=== PATIENT | male | born 1970 | race African-American/Black ===

== ENCOUNTER 2022-02-28 13:50 | Inpatient (IN) | payer MEDICAID ==
[~2022-02-28] VITALS: Ht 157.5 cm; Wt 82.6 kg
[2022-02-28] MEDS ORDERED: CLON1PAT12 TD (14:59)
[2022-02-28] MEDS ORDERED: HYDR25TA2 PO (14:59)
[2022-02-28] MEDS ORDERED: DOXY-354 PO (14:59)
[2022-02-28] MEDS ORDERED: CYCL-448 PO (14:59)
[2022-02-28] MEDS ORDERED: ATOR40TA28 PO (14:59)
[2022-02-28] MEDS ORDERED: FLUO20CA36 PO (14:59)
[2022-02-28] MEDS ORDERED: NIFE10CA50 PO (14:59)
[2022-02-28] MEDS ORDERED: AMLO-258 PO (14:59)
[2022-02-28] MEDS ORDERED: METF-1211 PO (14:59)
[2022-02-28 15:13] LABS: BASOPHILS % (AUTO) 0.7 % (0.0-2.0); EOSINOPHILS % (AUTO) 1.1 % (1.0-6.0); HEMATOCRIT 42.2 % (41-53); HEMOGLOBIN 13.7 g/dL (13.5-17.5); LYMPHOCYTES # (AUTO) 2.1 K/uL (1.0-4.8); LYMPHOCYTES % (AUTO) 20.1 % (22.0-44.0); MEAN CORPUSCULAR HEMOGLOBIN 25.2 pg (26.0-34.0); MEAN CORPUSCULAR HGB CONC 32.5 G/dL (31.0-37.0); MEAN CORPUSCULAR VOLUME 78 fL (80-100); MONOCYTES # (AUTO) 0.7 K/uL (0.1-1.0); NEUTROPHILS # (AUTO) 7.5 K/uL (1.8-7.7); NEUTROPHILS % (AUTO) 71.1 % (40.0-70.0); PLATELET COUNT (AUTO) 290 K/uL (150-450); RED BLOOD CELL COUNT(AUTO) 5.43 MIL/uL (4.50-5.90); RED CELL DISTRIBUTION WIDTH 14.9 % (11.5-14.5)
[2022-02-28 15:38] LABS: ALANINE AMINOTRANSFERASE 25 U/L (12-78); ALBUMIN 3.9 g/dL (3.4-5.0); ALKALINE PHOSPHATASE 89 U/L (46-116); ANION GAP 6 mmol/L (8-16); ASPARTATE AMINOTRANSFERASE 21 U/L (15-37); BILIRUBIN,TOTAL 0.3 mg/dL (0.1-1.0); CALCIUM, TOTAL 9.6 mg/dL (8.8-10.5); CARBON DIOXIDE 29 mmol/L (22-29); CHLORIDE 97 mmol/L (98-107); CREATININE 1.28 mg/dL (0.60-1.30); GLUCOSE,RANDOM 129 mg/dL (70-110); SODIUM SERUM 132 mmol/L (136-145); TOTAL PROTEIN, SERUM 8.8 g/dL (6.4-8.2); UREA NITROGEN, BLOOD 18 mg/dL (7-18)
[2022-02-28 15:43] LABS: GLOMERULAR FILTR. RATE CALC > 60 mL/min (>60); POTASSIUM 2.9 mmol/L (3.5-5.1)
[2022-02-28] MEDS ORDERED: NIFEdipine 10 MG CAPSULE PO ONE (16:00)
[2022-02-28] MEDS ORDERED: POTASSIUM CHLORIDE 20 MEQ ER TABLET PO ONE (16:15)
[2022-02-28] MEDS ORDERED: ZOLPIDEM TARTRATE 10 MG TABLET PO PRN (16:45)
[2022-02-28] MEDS ORDERED: LORazepam 2 MG TABLET PO PRN (16:45)
[2022-02-28] MEDS ORDERED: QUEtiapine FUMARATE 100 MG TABLET PO PRN (16:45)
[2022-02-28 17:24] LABS: APPEARANCE,URINE CLEAR (CLEAR); BILIRUBIN,URINE NEGATIVE (NEGATIVE); GLUCOSE, URINE (UA) NEGATIVE (NEGATIVE); KETONES,URINE NEGATIVE (NEGATIVE); LEUKOCYTE ESTERASE ,URINE NEGATIVE (NEGATIVE); NITRATE,URINE NEGATIVE (NEGATIVE); OCCULT BLOOD,URINE TRACE (NEGATIVE); PH,URINE 6.5 (5.0-8.0); PROTEIN,URINE NEGATIVE (NEGATIVE); SPECIFIC GRAVITIY, URINE 1.015 (1.003-1.030); UROBILINOGEN,URINE <=1.0 mg/dL (<=1.0)
[2022-02-28 17:31] LABS: AMPHET/METH SCREEN,URINE NEGATIVE (NEGATIVE); BARBITURATE SCREEN, URINE NEGATIVE (NEGATIVE); BENZODIAZEPINES SCREEN,URINE NEGATIVE (NEGATIVE); CANNABINOID SCREEN,URINE NEGATIVE (NEGATIVE); COCAINE SCREEN,URINE NEGATIVE (NEGATIVE); METHADONE SCREEN, URINE NEGATIVE (NEGATIVE); OPIATE SCREEN,URINE NEGATIVE (NEGATIVE)
[2022-02-28 17:36] LABS: PHENCYCLIDINE SCREEN,URINE NEGATIVE (NEGATIVE)
[2022-02-28 17:57] LABS: COVID AG,FIA SOURCE NASAL SWAB
[2022-02-28 18:01] LABS: BACTERIA,URINE None Seen /HPF (None Seen); SQUAMOUS EPITHELIAL CELL,UR Few /LPF (None Seen); WBC,URINE 0-2 /HPF (0-5)
[2022-02-28] MEDS ORDERED: ONDANSETRON HCL 4 MG/2 ML VIAL IVP PRN (19:30)
[2022-02-28] MEDS ORDERED: INSULIN LISPRO 100 UNITS/ML SQ PRN (19:30)
[2022-02-28] MEDS ORDERED: ACETAMINOPHEN 325 MG TABLET PO PRN (19:30)
[2022-02-28] MEDS ORDERED: DEXTROSE 50%-WATER 25 GM/50 ML SYRINGE IVP PRN (19:30)
[2022-03-01 05:18] LABS: BASOPHILS % (AUTO) 0.6 % (0.0-2.0); EOSINOPHILS % (AUTO) 1.7 % (1.0-6.0); HEMOGLOBIN 13.1 g/dL (13.5-17.5); LYMPHOCYTES # (AUTO) 1.9 K/uL (1.0-4.8); LYMPHOCYTES % (AUTO) 24.2 % (22.0-44.0); MEAN CORPUSCULAR HEMOGLOBIN 25.3 pg (26.0-34.0); MEAN CORPUSCULAR HGB CONC 32.8 G/dL (31.0-37.0); MEAN CORPUSCULAR VOLUME 77 fL (80-100); MONOCYTES # (AUTO) 0.7 K/uL (0.1-1.0); MONOCYTES % (AUTO) 9.3 % (2.0-9.0); NEUTROPHILS # (AUTO) 5.1 K/uL (1.8-7.7); NEUTROPHILS % (AUTO) 64.2 % (40.0-70.0); PLATELET COUNT (AUTO) 261 K/uL (150-450); RED BLOOD CELL COUNT(AUTO) 5.17 MIL/uL (4.50-5.90); RED CELL DISTRIBUTION WIDTH 15.6 % (11.5-14.5)
[2022-03-01 05:26] LABS: ANION GAP 5 mmol/L (8-16); CALCIUM, TOTAL 9.2 mg/dL (8.8-10.5); CARBON DIOXIDE 32 mmol/L (22-29); CHLORIDE 99 mmol/L (98-107); CREATININE 1.31 mg/dL (0.60-1.30); GLUCOSE,RANDOM 111 mg/dL (70-110); POTASSIUM 3.7 mmol/L (3.5-5.1); SODIUM SERUM 136 mmol/L (136-145); UREA NITROGEN, BLOOD 18 mg/dL (7-18)
[2022-03-01 05:32] LABS: GLOMERULAR FILTR. RATE CALC > 60 mL/min (>60)
[2022-03-01 10:16] LABS: GLUCOMETER DEV NAME(LOC) PVLAB.35; GLUCOSE,POINT OF CARE 205 MG/DL (70-110)
[2022-03-01] MEDS ORDERED: HALOPERIDOL 5 MG TABLET PO PRN (10:30)
[2022-03-01] MEDS ORDERED: LORazepam 2 MG TABLET PO PRN (10:30)
[2022-03-01 12:40] VITALS: BP 140/103
[2022-03-01 13:26] LABS: GLUCOMETER DEV NAME(LOC) BV2S.; GLUCOSE,POINT OF CARE 139 MG/DL (70-110)
[2022-03-01] MEDS: HYDROCHLOROTHIAZIDE 25 MG TABLET PO SCH (14:27)
[2022-03-01] MEDS: ATORVASTATIN CALCIUM 40 MG TABLET PO SCH (14:27)
[2022-03-01] MEDS ORDERED: ALBUTEROL SULFATE HFA 90 MCG/PUFF 8 GM INHALER IH PRN (14:30)
[2022-03-01] MEDS ORDERED: CloNIDine HCL 0.1 MG TABLET PO PRN (14:30)
[2022-03-01] MEDS ORDERED: NICOTINE 14 MG/24 HOUR PATCH TD PRN (14:30)
[2022-03-01] MEDS ORDERED: IBUPROFEN 400 MG TABLET PO PRN (14:30)
[2022-03-01] MEDS ORDERED: DOCUSATE SODIUM 100 MG CAPSULE PO PRN (14:30)
[2022-03-01] MEDS ORDERED: ONDANSETRON HCL 4 MG TABLET PO PRN (14:30)
[2022-03-01] MEDS ORDERED: GuaiFENesin/D-METHORPHAN [SUGAR-FREE] 200-20MG/10 ML SYRUP UDCUP PO PRN (14:30)
[2022-03-01] MEDS ORDERED: ACETAMINOPHEN 325 MG TABLET PO PRN (14:30)
[2022-03-01] MEDS ORDERED: MAGNESIUM HYDROXIDE SUSPENSION 30 ML UDCUP PO PRN (14:30)
[2022-03-01] MEDS ORDERED: MAGNESIUM OXIDE 400 MG TABLET PO ONE (14:30)
[2022-03-01] MEDS ORDERED: LOPERAMIDE HCL 2 MG CAPSULE PO PRN (14:30)
[2022-03-01] MEDS ORDERED: MAG HYDROX/AL HYDROX/SIMETH ES 30 ML SUSPENSION UDCUP PO PRN (14:30)
[2022-03-01] MEDS ORDERED: PETROLATUM,WHITE 28 GM JELLY TP PRN (14:30)
[2022-03-01] MEDS: MetFORMIN HCL 500 MG TABLET PO SCH (16:38)
[2022-03-01 16:51] LABS: GLUCOMETER DEV NAME(LOC) BV2S.; GLUCOSE,POINT OF CARE 106 MG/DL (70-110)
[2022-03-01] MEDS ORDERED: CloNIDine HCL 0.1 MG TABLET PO SCH (17:00)
[2022-03-01] MEDS: CYCLOBENZAPRINE HCL 10 MG TABLET PO PRN (18:36)
[2022-03-01 20:22] VITALS: BP 125/90
[2022-03-01] MEDS: ZOLPIDEM TARTRATE 10 MG TABLET PO PRN (20:24)
[2022-03-01] MEDS ORDERED: GLUCAGON,HUMAN RECOMBINANT 1 MG VIAL IM PRN (21:00)
[2022-03-01 21:22] LABS: GLUCOMETER DEV NAME(LOC) BV2S.; GLUCOSE,POINT OF CARE 141 MG/DL (70-110)
[2022-03-02 06:21] LABS: GLUCOMETER DEV NAME(LOC) BV2S.; GLUCOSE,POINT OF CARE 105 MG/DL (70-110)
[2022-03-02] MEDS: MetFORMIN HCL 500 MG TABLET PO SCH ×2 (06:48→16:59)
[2022-03-02 07:09] LABS: ANION GAP 5 mmol/L (8-16); CALCIUM, TOTAL 8.9 mg/dL (8.8-10.5); CARBON DIOXIDE 29 mmol/L (22-29); CHLORIDE 99 mmol/L (98-107); CREATININE 1.22 mg/dL (0.60-1.30); GLUCOSE,RANDOM 100 mg/dL (70-110); POTASSIUM 3.5 mmol/L (3.5-5.1); SODIUM SERUM 133 mmol/L (136-145); UREA NITROGEN, BLOOD 17 mg/dL (7-18)
[2022-03-02 07:12] LABS: GLOMERULAR FILTR. RATE CALC > 60 mL/min (>60)
[2022-03-02 08:06] VITALS: BP 145/73
[2022-03-02] MEDS: HYDROCHLOROTHIAZIDE 25 MG TABLET PO SCH (08:42)
[2022-03-02] MEDS: AmLODIPine BESYLATE 5 MG TABLET PO SCH (08:42)
[2022-03-02] MEDS: ATORVASTATIN CALCIUM 40 MG TABLET PO SCH (08:42)
[2022-03-02] MEDS: CYCLOBENZAPRINE HCL 10 MG TABLET PO PRN ×2 (08:55→21:02)
[2022-03-02] MEDS ORDERED: CloNIDine 0.1 MG/24 HOUR PATCH TD SCH (09:00)
[2022-03-02 11:36] LABS: GLUCOMETER DEV NAME(LOC) BV2S.; GLUCOSE,POINT OF CARE 90 MG/DL (70-110)
[2022-03-02] MEDS: FLUoxetine HCL 10 MG CAPSULE PO SCH (15:35)
[2022-03-02 16:52] LABS: GLUCOMETER DEV NAME(LOC) BV2S.; GLUCOSE,POINT OF CARE 123 MG/DL (70-110)
[2022-03-02 20:20] VITALS: BP 128/95
[2022-03-02] MEDS: OLANZapine 10 MG TABLET PO SCH (20:48)
[2022-03-02 21:51] LABS: GLUCOMETER DEV NAME(LOC) BV2S.; GLUCOSE,POINT OF CARE 162 MG/DL (70-110)
[2022-03-02] MEDS: INSULIN LISPRO 100 UNITS/ML SQ PRN (22:16)
[2022-03-03] MEDS: MetFORMIN HCL 500 MG TABLET PO SCH ×2 (06:54→16:42)
[2022-03-03 08:13] VITALS: BP 135/93
[2022-03-03 08:56] LABS: GLUCOMETER DEV NAME(LOC) BV2S.; GLUCOSE,POINT OF CARE 91 MG/DL (70-110)
[2022-03-03] MEDS: FLUoxetine HCL 10 MG CAPSULE PO SCH (09:08)
[2022-03-03] MEDS: ATORVASTATIN CALCIUM 40 MG TABLET PO SCH (09:08)
[2022-03-03] MEDS: AmLODIPine BESYLATE 5 MG TABLET PO SCH (09:08)
[2022-03-03] MEDS: HYDROCHLOROTHIAZIDE 25 MG TABLET PO SCH (09:08)
[2022-03-03 11:17] LABS: GLUCOMETER DEV NAME(LOC) BV2S.; GLUCOSE,POINT OF CARE 165 MG/DL (70-110)
[2022-03-03] MEDS: INSULIN LISPRO 100 UNITS/ML SQ PRN (11:29)
[2022-03-03 16:40] LABS: GLUCOMETER DEV NAME(LOC) BV2S.; GLUCOSE,POINT OF CARE 111 MG/DL (70-110)
[2022-03-03 20:05] VITALS: BP 139/90
[2022-03-03] MEDS: ZOLPIDEM TARTRATE 10 MG TABLET PO PRN (20:24)
[2022-03-03] MEDS: OLANZapine 10 MG TABLET PO SCH (20:24)
[2022-03-03] MEDS: CYCLOBENZAPRINE HCL 10 MG TABLET PO PRN (20:37)
[2022-03-03 20:46] LABS: GLUCOMETER DEV NAME(LOC) BV2S.; GLUCOSE,POINT OF CARE 131 MG/DL (70-110)
[2022-03-04 06:21] LABS: GLUCOMETER DEV NAME(LOC) BV2S.; GLUCOSE,POINT OF CARE 93 MG/DL (70-110)
[2022-03-04] MEDS: MetFORMIN HCL 500 MG TABLET PO SCH ×2 (06:38→16:40)
[2022-03-04 08:17] VITALS: BP 140/90
[2022-03-04] MEDS: ATORVASTATIN CALCIUM 40 MG TABLET PO SCH (08:39)
[2022-03-04] MEDS: FLUoxetine HCL 10 MG CAPSULE PO SCH (08:39)
[2022-03-04] MEDS: HYDROCHLOROTHIAZIDE 25 MG TABLET PO SCH (08:39)
[2022-03-04] MEDS: AmLODIPine BESYLATE 5 MG TABLET PO SCH (08:39)
[2022-03-04 11:21] LABS: GLUCOMETER DEV NAME(LOC) BV2S.; GLUCOSE,POINT OF CARE 160 MG/DL (70-110)
[2022-03-04] MEDS: INSULIN LISPRO 100 UNITS/ML SQ PRN (11:27)
[2022-03-04 16:21] LABS: GLUCOMETER DEV NAME(LOC) BV2S.; GLUCOSE,POINT OF CARE 102 MG/DL (70-110)
[2022-03-04 20:25] VITALS: BP 128/83
[2022-03-04] MEDS: OLANZapine 10 MG TABLET PO SCH (20:27)
[2022-03-04] MEDS: CYCLOBENZAPRINE HCL 10 MG TABLET PO PRN (20:27)
[2022-03-04 21:31] LABS: GLUCOMETER DEV NAME(LOC) BV2S.; GLUCOSE,POINT OF CARE 126 MG/DL (70-110)
[2022-03-05] MEDS: ZOLPIDEM TARTRATE 10 MG TABLET PO PRN ×2 (00:08→21:03)
[2022-03-05 00:09] VITALS: BP 138/93
[2022-03-05 06:41] LABS: GLUCOMETER DEV NAME(LOC) BV2S.; GLUCOSE,POINT OF CARE 78 MG/DL (70-110)
[2022-03-05] MEDS: MetFORMIN HCL 500 MG TABLET PO SCH ×2 (06:58→16:32)
[2022-03-05 08:32] VITALS: BP 128/77
[2022-03-05] MEDS: AmLODIPine BESYLATE 5 MG TABLET PO SCH (09:13)
[2022-03-05] MEDS: HYDROCHLOROTHIAZIDE 25 MG TABLET PO SCH (09:13)
[2022-03-05] MEDS: FLUoxetine HCL 10 MG CAPSULE PO SCH (09:13)
[2022-03-05] MEDS: ATORVASTATIN CALCIUM 40 MG TABLET PO SCH (09:13)
[2022-03-05] MEDS: INSULIN LISPRO 100 UNITS/ML SQ PRN ×2 (11:27→16:42)
[2022-03-05 11:57] LABS: GLUCOMETER DEV NAME(LOC) BV2S.; GLUCOSE,POINT OF CARE 169 MG/DL (70-110)
[2022-03-05] MEDS: CYCLOBENZAPRINE HCL 10 MG TABLET PO PRN (13:05)
[2022-03-05 15:01] LABS: GLUCOMETER DEV NAME(LOC) POC.BV
[2022-03-05 16:30] LABS: GLUCOMETER DEV NAME(LOC) BV2S.; GLUCOSE,POINT OF CARE 168 MG/DL (70-110)
[2022-03-05 20:12] VITALS: BP 119/83
[2022-03-05 20:25] LABS: GLUCOMETER DEV NAME(LOC) BV2S.; GLUCOSE,POINT OF CARE 124 MG/DL (70-110)
[2022-03-05] MEDS: OLANZapine 10 MG TABLET PO SCH (20:30)
[2022-03-06] MEDS ORDERED: ATOR40TA71 PO (04:58)
[2022-03-06] MEDS ORDERED: METF-1211 PO (04:58)
[2022-03-06] MEDS ORDERED: PROZ10 PO (04:58)
[2022-03-06] MEDS ORDERED: HYDR25TA PO (04:58)
[2022-03-06] MEDS ORDERED: [UNRECOGNIZED DRUG - CODE] TD (04:58)
[2022-03-06] MEDS ORDERED: OLAN10 PO (04:58)
[2022-03-06] MEDS ORDERED: AMLO-257 PO (04:58)
[2022-03-06] MEDS: MetFORMIN HCL 500 MG TABLET PO SCH (06:38)
[2022-03-06 06:41] LABS: GLUCOMETER DEV NAME(LOC) BV2S.; GLUCOSE,POINT OF CARE 105 MG/DL (70-110)
[2022-03-06 09:00] VITALS: BP 141/91
[2022-03-06] MEDS: HYDROCHLOROTHIAZIDE 25 MG TABLET PO SCH (09:39)
[2022-03-06] MEDS: AmLODIPine BESYLATE 5 MG TABLET PO SCH (09:39)
[2022-03-06] MEDS: ATORVASTATIN CALCIUM 40 MG TABLET PO SCH (09:39)
[2022-03-06] MEDS: FLUoxetine HCL 10 MG CAPSULE PO SCH (09:39)
[2022-03-06 15:21] LABS: GLUCOMETER DEV NAME(LOC) BV2S.; GLUCOSE,POINT OF CARE 107 MG/DL (70-110)
[2022-03-06 16:51] LABS: GLUCOMETER DEV NAME(LOC) POC.BV
== END 2022-03-06 12:00 | disposition home or self-care (01) | DRG 750 ==
LOC: EMS 13:52 → B2S 03-01 10:42
PROVIDERS: ADMIT Psychiatry & Neurology Psychiatry; ATTEND Psychiatry & Neurology Psychiatry
DX: F25.1 Schizoaffective disorder, depressive type (principal); R45.851 Suicidal ideations; E11.9 Type 2 diabetes mellitus without complications; E78.00 Pure hypercholesterolemia, unspecified; D64.9 Anemia, unspecified; E66.9 Obesity, unspecified; I10 Essential (primary) hypertension; I25.10 Atherosclerotic heart disease of native coronary artery without angina pectoris; Z20.822 Contact with and (suspected) exposure to COVID-19; Z79.899 Other long term (current) drug therapy; Z88.8 Allergy status to other drugs, medicaments and biological substances; Z91.51 Personal history of suicidal behavior; Z68.33 Body mass index [BMI] 33.0-33.9, adult
CPT/HCPCS: 80048; 80053; 81001; 81003; 82962; 83735; 85025; 85379; 99285; G0480

== ENCOUNTER 2022-03-07 19:53 | Inpatient (IN) | payer MEDICAID ==
[~2022-03-07] VITALS: Ht 157.5 cm; Wt 90.3 kg
[~2022-03-07 19:53] MED LIST: AMLO-257 PO; ATOR40TA71 PO; HYDR25TA PO; METF-1211 PO; OLAN10 PO; PROZ10 PO; [UNRECOGNIZED DRUG - CODE] TD
[2022-03-07 20:32] LABS: BASOPHILS % (AUTO) 0.7 % (0.0-2.0); EOSINOPHILS % (AUTO) 2.3 % (1.0-6.0); HEMATOCRIT 42.4 % (41-53); HEMOGLOBIN 14.1 g/dL (13.5-17.5); LYMPHOCYTES % (AUTO) 30.3 % (22.0-44.0); MEAN CORPUSCULAR HEMOGLOBIN 26.2 pg (26.0-34.0); MEAN CORPUSCULAR HGB CONC 33.4 G/dL (31.0-37.0); MEAN CORPUSCULAR VOLUME 78 fL (80-100); MONOCYTES # (AUTO) 0.9 K/uL (0.1-1.0); MONOCYTES % (AUTO) 9.5 % (2.0-9.0); NEUTROPHILS # (AUTO) 5.6 K/uL (1.8-7.7); NEUTROPHILS % (AUTO) 57.2 % (40.0-70.0); PLATELET COUNT (AUTO) 259 K/uL (150-450); RED CELL DISTRIBUTION WIDTH 15.5 % (11.5-14.5)
[2022-03-07 21:00] LABS: COVID AG,FIA SOURCE NASOPHARYNGEAL
[2022-03-07 21:01] LABS: ANION GAP 9 mmol/L (8-16); CALCIUM, TOTAL 9.6 mg/dL (8.8-10.5); CARBON DIOXIDE 31 mmol/L (22-29); CHLORIDE 102 mmol/L (98-107); CREATININE 1.67 mg/dL (0.60-1.30); GLUCOSE,RANDOM 99 mg/dL (70-110); POTASSIUM 3.7 mmol/L (3.5-5.1); SODIUM SERUM 142 mmol/L (136-145); UREA NITROGEN, BLOOD 19 mg/dL (7-18)
[2022-03-07 21:08] LABS: GLOMERULAR FILTR. RATE CALC 53 mL/min (>60)
[2022-03-07 21:11] LABS: ALANINE AMINOTRANSFERASE 34 U/L (12-78); ALKALINE PHOSPHATASE 133 U/L (46-116); ASPARTATE AMINOTRANSFERASE 19 U/L (15-37); BILIRUBIN,TOTAL 0.3 mg/dL (0.1-1.0)
[2022-03-07] MEDS ORDERED: HALOPERIDOL 5 MG TABLET PO PRN (21:30)
[2022-03-08 01:30] VITALS: BP 136/96
[2022-03-08] MEDS ORDERED: PNEUMOCOCCAL VACCINE POLYVALENT 0.5 ML VIAL [PPSV23] IM. ONE (05:30)
[2022-03-08] MEDS ORDERED: INFLUENZA VIRUS VACCINE QVS 2022-23 (6MO+)/PF 60 MCG/0.5 ML SYRINGE IM. ONE (05:30)
[2022-03-08] MEDS ORDERED: GLUCAGON,HUMAN RECOMBINANT 1 MG VIAL IM PRN (06:15)
[2022-03-08] MEDS: MetFORMIN HCL 500 MG TABLET PO SCH ×2 (06:40→16:29)
[2022-03-08 06:46] LABS: GLUCOMETER DEV NAME(LOC) BV3N.; GLUCOSE,POINT OF CARE 101 MG/DL (70-110)
[2022-03-08] MEDS ORDERED: MAG HYDROX/AL HYDROX/SIMETH ES 30 ML SUSPENSION UDCUP PO PRN (07:00)
[2022-03-08] MEDS ORDERED: PETROLATUM,WHITE 28 GM JELLY TP PRN (07:00)
[2022-03-08] MEDS ORDERED: CloNIDine HCL 0.1 MG TABLET PO PRN (07:00)
[2022-03-08] MEDS ORDERED: GuaiFENesin/D-METHORPHAN [SUGAR-FREE] 200-20MG/10 ML SYRUP UDCUP PO PRN (07:00)
[2022-03-08] MEDS ORDERED: ACETAMINOPHEN 325 MG TABLET PO PRN (07:00)
[2022-03-08] MEDS ORDERED: NICOTINE 14 MG/24 HOUR PATCH TD PRN (07:00)
[2022-03-08] MEDS ORDERED: IBUPROFEN 400 MG TABLET PO PRN (07:00)
[2022-03-08] MEDS ORDERED: MAGNESIUM HYDROXIDE SUSPENSION 30 ML UDCUP PO PRN (07:00)
[2022-03-08] MEDS ORDERED: ONDANSETRON HCL 4 MG TABLET PO PRN (07:00)
[2022-03-08] MEDS ORDERED: DOCUSATE SODIUM 100 MG CAPSULE PO PRN (07:00)
[2022-03-08] MEDS ORDERED: LOPERAMIDE HCL 2 MG CAPSULE PO PRN (07:00)
[2022-03-08] MEDS ORDERED: ALBUTEROL SULFATE HFA 90 MCG/PUFF 8 GM INHALER IH PRN (07:00)
[2022-03-08] MEDS: AmLODIPine BESYLATE 5 MG TABLET PO SCH (09:01)
[2022-03-08] MEDS: ATORVASTATIN CALCIUM 40 MG TABLET PO SCH (09:01)
[2022-03-08 09:36] VITALS: BP 125/69
[2022-03-08 12:02] LABS: GLUCOMETER DEV NAME(LOC) BV3N.; GLUCOSE,POINT OF CARE 124 MG/DL (70-110)
[2022-03-08] MEDS: OLANZapine 10 MG TABLET PO SCH (12:49)
[2022-03-08] MEDS: FLUoxetine HCL 20 MG CAPSULE PO SCH (12:49)
[2022-03-08] MEDS: LORazepam 2 MG TABLET PO PRN (13:42)
[2022-03-08 16:41] LABS: GLUCOMETER DEV NAME(LOC) BV3N.; GLUCOSE,POINT OF CARE 137 MG/DL (70-110)
[2022-03-08] MEDS: ZOLPIDEM TARTRATE 10 MG TABLET PO PRN (20:17)
[2022-03-08 20:26] LABS: GLUCOMETER DEV NAME(LOC) BV3N.; GLUCOSE,POINT OF CARE 143 MG/DL (70-110)
[2022-03-08] MEDS: INSULIN LISPRO 100 UNITS/ML SQ PRN (20:37)
[2022-03-08 21:03] VITALS: BP 133/99
[2022-03-09 06:36] LABS: GLUCOMETER DEV NAME(LOC) BV3N.; GLUCOSE,POINT OF CARE 98 MG/DL (70-110)
[2022-03-09] MEDS: MetFORMIN HCL 500 MG TABLET PO SCH ×2 (06:44→16:27)
[2022-03-09] MEDS: ATORVASTATIN CALCIUM 40 MG TABLET PO SCH (08:38)
[2022-03-09] MEDS: FLUoxetine HCL 20 MG CAPSULE PO SCH (08:38)
[2022-03-09] MEDS: OLANZapine 10 MG TABLET PO SCH (08:38)
[2022-03-09] MEDS: AmLODIPine BESYLATE 5 MG TABLET PO SCH (08:38)
[2022-03-09 09:07] VITALS: BP 122/70
[2022-03-09 11:51] LABS: GLUCOMETER DEV NAME(LOC) BV3N.; GLUCOSE,POINT OF CARE 97 MG/DL (70-110)
[2022-03-09] MEDS ORDERED: CYCLOBENZAPRINE HCL 10 MG TABLET PO PRN (16:15)
[2022-03-09] MEDS: INSULIN LISPRO 100 UNITS/ML SQ PRN (16:29)
[2022-03-09 16:32] VITALS: BP 118/76
[2022-03-09 16:56] LABS: GLUCOMETER DEV NAME(LOC) BV3N.; GLUCOSE,POINT OF CARE 152 MG/DL (70-110)
[2022-03-09 20:44] VITALS: BP 143/82
[2022-03-09 21:11] LABS: GLUCOMETER DEV NAME(LOC) BV3N.; GLUCOSE,POINT OF CARE 100 MG/DL (70-110)
[2022-03-10 06:22] LABS: GLUCOMETER DEV NAME(LOC) BV3N.; GLUCOSE,POINT OF CARE 89 MG/DL (70-110)
[2022-03-10] MEDS: MetFORMIN HCL 500 MG TABLET PO SCH ×2 (06:56→16:43)
[2022-03-10] MEDS: OLANZapine 10 MG TABLET PO SCH (08:46)
[2022-03-10] MEDS: AmLODIPine BESYLATE 5 MG TABLET PO SCH (08:46)
[2022-03-10] MEDS: FLUoxetine HCL 20 MG CAPSULE PO SCH (08:46)
[2022-03-10] MEDS: ATORVASTATIN CALCIUM 40 MG TABLET PO SCH (08:46)
[2022-03-10] MEDS ORDERED: CYCLOBENZAPRINE HCL 10 MG TABLET PO SCH (09:00)
[2022-03-10 12:16] LABS: GLUCOMETER DEV NAME(LOC) BV3N.; GLUCOSE,POINT OF CARE 128 MG/DL (70-110)
[2022-03-10] MEDS: INSULIN LISPRO 100 UNITS/ML SQ PRN (16:43)
[2022-03-10 17:06] LABS: GLUCOMETER DEV NAME(LOC) BV3N.; GLUCOSE,POINT OF CARE 199 MG/DL (70-110)
[2022-03-10 20:15] VITALS: BP 138/82
[2022-03-10 20:51] LABS: GLUCOMETER DEV NAME(LOC) BV3N.; GLUCOSE,POINT OF CARE 106 MG/DL (70-110)
[2022-03-10] MEDS: ZOLPIDEM TARTRATE 10 MG TABLET PO PRN (22:16)
[2022-03-10] MEDS: LORazepam 2 MG TABLET PO PRN (23:27)
[2022-03-11] MEDS: LORazepam 2 MG TABLET PO PRN (03:36)
[2022-03-11] MEDS: MetFORMIN HCL 500 MG TABLET PO SCH (06:58)
[2022-03-11] MEDS: FLUoxetine HCL 20 MG CAPSULE PO SCH (08:05)
[2022-03-11] MEDS: AmLODIPine BESYLATE 5 MG TABLET PO SCH (08:05)
[2022-03-11] MEDS: ATORVASTATIN CALCIUM 40 MG TABLET PO SCH (08:05)
[2022-03-11 08:07] VITALS: BP 140/90
[2022-03-11 09:16] LABS: GLUCOMETER DEV NAME(LOC) BV3N.; GLUCOSE,POINT OF CARE 88 MG/DL (70-110)
[2022-03-11 11:51] LABS: GLUCOMETER DEV NAME(LOC) BV3N.; GLUCOSE,POINT OF CARE 137 MG/DL (70-110)
[2022-03-11] MEDS ORDERED: AMLO-257 PO ×2 (14:30→14:45)
[2022-03-11] MEDS ORDERED: METF-1211 PO ×2 (14:30→14:46)
[2022-03-11] MEDS ORDERED: ATOR40TA71 PO ×2 (14:30→14:40)
[2022-03-11] MEDS ORDERED: OLAN10 PO (14:34)
[2022-03-11] MEDS ORDERED: FLUO20CA36 PO (14:34)
[2022-03-11] MEDS ORDERED: ATOR20TA65 PO (14:49)
[2022-03-11] MEDS ORDERED: FLUO-177 PO (14:54)
[2022-03-11] MEDS ORDERED: FLUO10CA21 PO (14:55)
[2022-03-11] MEDS ORDERED: OLANZapine 10 MG TABLET PO SCH (21:00)
== END 2022-03-11 16:42 | disposition home or self-care (01) | DRG 750 ==
LOC: EMS 19:53 → B3A 03-08 00:28
PROVIDERS: ADMIT Psychiatry & Neurology Child & Adolescent Psychiatry; ATTEND Psychiatry & Neurology Psychiatry
DX: F25.1 Schizoaffective disorder, depressive type (principal); E11.22 Type 2 diabetes mellitus with diabetic chronic kidney disease; F79 Unspecified intellectual disabilities; R45.851 Suicidal ideations; Z20.822 Contact with and (suspected) exposure to COVID-19; E78.00 Pure hypercholesterolemia, unspecified; F99 Mental disorder, not otherwise specified; I12.9 Hypertensive chronic kidney disease with stage 1 through stage 4 chronic kidney disease, or unspecified chronic kidney disease; I25.10 Atherosclerotic heart disease of native coronary artery without angina pectoris; N18.9 Chronic kidney disease, unspecified; Z88.8 Allergy status to other drugs, medicaments and biological substances
CPT/HCPCS: 80053; 82962; 85025; 87081; 99285; G0480

== ENCOUNTER 2022-03-26 18:49 | Inpatient (IN) | payer MEDICAID ==
[~2022-03-26] VITALS: Ht 157.5 cm; Wt 88.0 kg
[~2022-03-26 18:49] MED LIST changes: +FLUO-177 PO; +FLUO20CA36 PO; -HYDR25TA PO; -PROZ10 PO; -[UNRECOGNIZED DRUG - CODE] TD
[2022-03-26] MEDS ORDERED: CLON0.1T PO (21:19)
[2022-03-26] MEDS ORDERED: HYDR25TA2 PO (21:19)
[2022-03-26 21:34] LABS: COVID AG,FIA SOURCE NASAL SWAB
[2022-03-26 21:36] LABS: GLUCOSE,POINT OF CARE 115 MG/DL (70-110)
[2022-03-26 21:44] LABS: BASOPHILS % (AUTO) 0.8 % (0.0-2.0); EOSINOPHILS % (AUTO) 1.9 % (1.0-6.0); HEMATOCRIT 41.8 % (41-53); HEMOGLOBIN 13.3 g/dL (13.5-17.5); LYMPHOCYTES # (AUTO) 2.1 K/uL (1.0-4.8); LYMPHOCYTES % (AUTO) 26.3 % (22.0-44.0); MEAN CORPUSCULAR HEMOGLOBIN 24.9 pg (26.0-34.0); MEAN CORPUSCULAR HGB CONC 31.9 G/dL (31.0-37.0); MEAN CORPUSCULAR VOLUME 78 fL (80-100); MONOCYTES # (AUTO) 0.7 K/uL (0.1-1.0); MONOCYTES % (AUTO) 8.8 % (2.0-9.0); NEUTROPHILS % (AUTO) 62.2 % (40.0-70.0); PLATELET COUNT (AUTO) 212 K/uL (150-450); RED BLOOD CELL COUNT(AUTO) 5.34 MIL/uL (4.50-5.90); RED CELL DISTRIBUTION WIDTH 15.1 % (11.5-14.5)
[2022-03-26 21:59] LABS: ALANINE AMINOTRANSFERASE 33 U/L (12-78); ALBUMIN 3.7 g/dL (3.4-5.0); ALKALINE PHOSPHATASE 94 U/L (46-116); ANION GAP 9 mmol/L (8-16); ASPARTATE AMINOTRANSFERASE 20 U/L (15-37); BILIRUBIN,TOTAL 0.3 mg/dL (0.1-1.0); CALCIUM, TOTAL 9.5 mg/dL (8.8-10.5); CARBON DIOXIDE 27 mmol/L (22-29); CHLORIDE 100 mmol/L (98-107); GLUCOSE,RANDOM 122 mg/dL (70-110); SODIUM SERUM 136 mmol/L (136-145); TOTAL PROTEIN, SERUM 8.1 g/dL (6.4-8.2); UREA NITROGEN, BLOOD 21 mg/dL (7-18)
[2022-03-26 22:00] LABS: GLOMERULAR FILTR. RATE CALC > 60 mL/min (>60)
[2022-03-26] MEDS: ZOLPIDEM TARTRATE 10 MG TABLET PO PRN (23:26)
[2022-03-26] MEDS ORDERED: POTASSIUM CHLORIDE 20 MEQ ER TABLET PO ONE (23:30)
[2022-03-27] MEDS: LORazepam 1 MG TABLET PO PRN (01:18)
[2022-03-27 04:15] VITALS: BP 145/89
[2022-03-27] MEDS ORDERED: MAG HYDROX/AL HYDROX/SIMETH ES 30 ML SUSPENSION UDCUP PO PRN (06:00)
[2022-03-27] MEDS ORDERED: DOCUSATE SODIUM 100 MG CAPSULE PO PRN (06:00)
[2022-03-27] MEDS ORDERED: CloNIDine HCL 0.1 MG TABLET PO PRN (06:00)
[2022-03-27] MEDS ORDERED: IBUPROFEN 600 MG TABLET PO PRN (06:00)
[2022-03-27] MEDS ORDERED: ONDANSETRON HCL 4 MG TABLET PO PRN (06:00)
[2022-03-27] MEDS ORDERED: BACITRACIN 28 GM OINTMENT TP PRN (06:00)
[2022-03-27] MEDS ORDERED: PETROLATUM,WHITE 28 GM JELLY TP PRN (06:00)
[2022-03-27] MEDS ORDERED: POTASSIUM CHLORIDE 20 MEQ ER TABLET PO ONE (06:00)
[2022-03-27] MEDS ORDERED: OMEPRAZOLE 20 MG CAPSULE PO PRN (06:00)
[2022-03-27] MEDS ORDERED: ACETAMINOPHEN 325 MG TABLET PO PRN (06:00)
[2022-03-27] MEDS ORDERED: DEXTROSE 50%-WATER 25 GM/50 ML SYRINGE IVP PRN (06:00)
[2022-03-27] MEDS ORDERED: MAGNESIUM HYDROXIDE SUSPENSION 30 ML UDCUP PO PRN (06:00)
[2022-03-27] MEDS ORDERED: BENZOCAINE/MENTHOL LOZENGE PO PRN (06:00)
[2022-03-27] MEDS ORDERED: ALBUTEROL SULFATE HFA 90 MCG/PUFF 8 GM INHALER IH PRN (06:00)
[2022-03-27] MEDS ORDERED: LOPERAMIDE HCL 2 MG CAPSULE PO PRN (06:00)
[2022-03-27] MEDS: MetFORMIN HCL 500 MG TABLET PO SCH ×2 (06:32→17:30)
[2022-03-27 06:36] LABS: GLUCOMETER DEV NAME(LOC) 3E.I 2; GLUCOSE,POINT OF CARE 145 MG/DL (70-110)
[2022-03-27 07:16] LABS: APPEARANCE,URINE CLEAR (CLEAR); BILIRUBIN,URINE NEGATIVE (NEGATIVE); GLUCOSE, URINE (UA) NEGATIVE (NEGATIVE); KETONES,URINE NEGATIVE (NEGATIVE); LEUKOCYTE ESTERASE ,URINE NEGATIVE (NEGATIVE); NITRATE,URINE NEGATIVE (NEGATIVE); OCCULT BLOOD,URINE TRACE (NEGATIVE); PROTEIN,URINE NEGATIVE (NEGATIVE); SPECIFIC GRAVITIY, URINE 1.022 (1.003-1.030); UROBILINOGEN,URINE <=1.0 mg/dL (<=1.0)
[2022-03-27 07:31] LABS: BACTERIA,URINE None Seen /HPF (None Seen); RBC,URINE 0-2 /HPF (0-2); WBC,URINE None Seen /HPF (0-5)
[2022-03-27 07:37] LABS: AMPHET/METH SCREEN,URINE NEGATIVE (NEGATIVE); BARBITURATE SCREEN, URINE NEGATIVE (NEGATIVE); BENZODIAZEPINES SCREEN,URINE NEGATIVE (NEGATIVE); CANNABINOID SCREEN,URINE NEGATIVE (NEGATIVE); COCAINE SCREEN,URINE NEGATIVE (NEGATIVE); METHADONE SCREEN, URINE NEGATIVE (NEGATIVE); OPIATE SCREEN,URINE NEGATIVE (NEGATIVE); PHENCYCLIDINE SCREEN,URINE NEGATIVE (NEGATIVE)
[2022-03-27 08:00] VITALS: BP 138/90
[2022-03-27] MEDS: ATORVASTATIN CALCIUM 40 MG TABLET PO SCH (08:50)
[2022-03-27] MEDS: HYDROCHLOROTHIAZIDE 25 MG TABLET PO SCH (09:03)
[2022-03-27] MEDS: INSULIN LISPRO 100 UNITS/ML SQ PRN ×2 (11:40→20:28)
[2022-03-27 11:51] LABS: GLUCOMETER DEV NAME(LOC) 3EX.2; GLUCOSE,POINT OF CARE 108 MG/DL (70-110)
[2022-03-27] MEDS: FLUoxetine HCL 20 MG CAPSULE PO SCH (11:58)
[2022-03-27 16:00] VITALS: BP 143/101
[2022-03-27 17:10] LABS: GLUCOMETER DEV NAME(LOC) 3E.I 2; GLUCOSE,POINT OF CARE 114 MG/DL (70-110)
[2022-03-27] MEDS: OLANZapine 10 MG TABLET PO SCH (20:10)
[2022-03-27 20:16] LABS: GLUCOMETER DEV NAME(LOC) 3E.I 2; GLUCOSE,POINT OF CARE 153 MG/DL (70-110)
[2022-03-27] MEDS: ZOLPIDEM TARTRATE 10 MG TABLET PO PRN (20:31)
[2022-03-28 06:06] LABS: GLUCOMETER DEV NAME(LOC) 3E.I 2; GLUCOSE,POINT OF CARE 102 MG/DL (70-110)
[2022-03-28] MEDS: MetFORMIN HCL 500 MG TABLET PO SCH ×2 (06:36→17:13)
[2022-03-28 07:48] LABS: HEMOGLOBIN A1C 7.9 % (3.8-5.6)
[2022-03-28 08:00] LABS: ANION GAP 7 mmol/L (8-16); CALCIUM, TOTAL 8.7 mg/dL (8.8-10.5); CARBON DIOXIDE 29 mmol/L (22-29); CHLORIDE 101 mmol/L (98-107); CREATININE 1.24 mg/dL (0.60-1.30); GLUCOSE,RANDOM 109 mg/dL (70-110); POTASSIUM 3.1 mmol/L (3.5-5.1); SODIUM SERUM 137 mmol/L (136-145); UREA NITROGEN, BLOOD 16 mg/dL (7-18)
[2022-03-28 08:03] LABS: GLOMERULAR FILTR. RATE CALC > 60 mL/min (>60)
[2022-03-28] MEDS: FLUoxetine HCL 20 MG CAPSULE PO SCH (08:57)
[2022-03-28] MEDS: ATORVASTATIN CALCIUM 40 MG TABLET PO SCH (08:57)
[2022-03-28] MEDS: HYDROCHLOROTHIAZIDE 25 MG TABLET PO SCH (08:57)
[2022-03-28 09:02] VITALS: BP 136/83
[2022-03-28 09:04] VITALS: BP 136/83
[2022-03-28 11:46] LABS: GLUCOMETER DEV NAME(LOC) 3E.I 2; GLUCOSE,POINT OF CARE 109 MG/DL (70-110)
[2022-03-28 16:05] VITALS: BP 142/75
[2022-03-28 17:31] LABS: GLUCOMETER DEV NAME(LOC) 3E.I 2; GLUCOSE,POINT OF CARE 118 MG/DL (70-110)
[2022-03-28] MEDS: LORazepam 1 MG TABLET PO PRN (20:03)
[2022-03-28] MEDS: HALOPERIDOL 5 MG TABLET PO PRN (20:33)
[2022-03-28] MEDS: OLANZapine 10 MG TABLET PO SCH (20:47)
[2022-03-28 21:06] LABS: GLUCOMETER DEV NAME(LOC) 3E.I 2; GLUCOSE,POINT OF CARE 103 MG/DL (70-110)
[2022-03-29 05:31] LABS: GLUCOMETER DEV NAME(LOC) 3E.I 2; GLUCOSE,POINT OF CARE 79 MG/DL (70-110)
[2022-03-29] MEDS: MetFORMIN HCL 500 MG TABLET PO SCH ×2 (06:59→17:34)
[2022-03-29] MEDS: INSULIN LISPRO 100 UNITS/ML SQ PRN (07:02)
[2022-03-29 08:51] VITALS: BP 146/82
[2022-03-29] MEDS: HYDROCHLOROTHIAZIDE 25 MG TABLET PO SCH (09:46)
[2022-03-29] MEDS: FLUoxetine HCL 20 MG CAPSULE PO SCH (09:46)
[2022-03-29] MEDS: ATORVASTATIN CALCIUM 40 MG TABLET PO SCH (09:46)
[2022-03-29 12:26] LABS: GLUCOMETER DEV NAME(LOC) 3E.I 2; GLUCOSE,POINT OF CARE 95 MG/DL (70-110)
[2022-03-29] MEDS: LORazepam 1 MG TABLET PO PRN (14:16)
[2022-03-29] MEDS: HALOPERIDOL 5 MG TABLET PO PRN (14:16)
[2022-03-29 16:35] VITALS: BP 132/78
[2022-03-29 17:06] LABS: GLUCOMETER DEV NAME(LOC) 3E.I 2; GLUCOSE,POINT OF CARE 135 MG/DL (70-110)
[2022-03-29] MEDS: OLANZapine 10 MG TABLET PO SCH (20:46)
[2022-03-29 20:55] LABS: GLUCOMETER DEV NAME(LOC) 3E.I 2; GLUCOSE,POINT OF CARE 133 MG/DL (70-110)
[2022-03-29] MEDS: ZOLPIDEM TARTRATE 10 MG TABLET PO PRN (21:01)
[2022-03-30 06:21] LABS: GLUCOMETER DEV NAME(LOC) 3E.I 2; GLUCOSE,POINT OF CARE 133 MG/DL (70-110)
[2022-03-30] MEDS: INSULIN LISPRO 100 UNITS/ML SQ PRN (06:43)
[2022-03-30] MEDS: MetFORMIN HCL 500 MG TABLET PO SCH ×2 (06:44→16:51)
[2022-03-30] MEDS: FLUoxetine HCL 20 MG CAPSULE PO SCH (08:33)
[2022-03-30] MEDS: ATORVASTATIN CALCIUM 40 MG TABLET PO SCH (08:33)
[2022-03-30] MEDS: HYDROCHLOROTHIAZIDE 25 MG TABLET PO SCH (08:34)
[2022-03-30 08:42] VITALS: BP 140/87
[2022-03-30 11:47] LABS: GLUCOMETER DEV NAME(LOC) 3EX.2; GLUCOSE,POINT OF CARE 126 MG/DL (70-110)
[2022-03-30 16:53] VITALS: BP 130/70
[2022-03-30 16:56] LABS: GLUCOMETER DEV NAME(LOC) 3EX.2; GLUCOSE,POINT OF CARE 76 MG/DL (70-110)
[2022-03-30] MEDS: OLANZapine 10 MG TABLET PO SCH (20:25)
[2022-03-30 21:36] LABS: GLUCOMETER DEV NAME(LOC) 3E.I 2; GLUCOSE,POINT OF CARE 116 MG/DL (70-110)
[2022-03-31 06:21] LABS: GLUCOMETER DEV NAME(LOC) 3E.I 2; GLUCOSE,POINT OF CARE 77 MG/DL (70-110)
[2022-03-31] MEDS: INSULIN LISPRO 100 UNITS/ML SQ PRN ×3 (06:38→17:00)
[2022-03-31] MEDS: MetFORMIN HCL 500 MG TABLET PO SCH ×2 (06:44→16:31)
[2022-03-31] MEDS: FLUoxetine HCL 20 MG CAPSULE PO SCH (08:22)
[2022-03-31] MEDS: HYDROCHLOROTHIAZIDE 25 MG TABLET PO SCH (08:22)
[2022-03-31] MEDS: ATORVASTATIN CALCIUM 40 MG TABLET PO SCH (08:22)
[2022-03-31 09:12] VITALS: BP 143/94
[2022-03-31 11:51] LABS: GLUCOMETER DEV NAME(LOC) 3EX.2; GLUCOSE,POINT OF CARE 110 MG/DL (70-110)
[2022-03-31 16:21] LABS: GLUCOMETER DEV NAME(LOC) 3E.I 2; GLUCOSE,POINT OF CARE 154 MG/DL (70-110)
[2022-03-31 16:27] VITALS: BP 139/67
[2022-03-31] MEDS: OLANZapine 10 MG TABLET PO SCH (20:06)
[2022-03-31 20:21] LABS: GLUCOMETER DEV NAME(LOC) 3E.I 2; GLUCOSE,POINT OF CARE 74 MG/DL (70-110)
[2022-03-31] MEDS: ZOLPIDEM TARTRATE 10 MG TABLET PO PRN (20:21)
[2022-03-31] MEDS: LORazepam 1 MG TABLET PO PRN (23:20)
[2022-04-01 05:52] LABS: GLUCOMETER DEV NAME(LOC) 3E.I 2; GLUCOSE,POINT OF CARE 89 MG/DL (70-110)
[2022-04-01] MEDS: MetFORMIN HCL 500 MG TABLET PO SCH ×2 (06:38→16:19)
[2022-04-01] MEDS: HYDROCHLOROTHIAZIDE 25 MG TABLET PO SCH (08:17)
[2022-04-01] MEDS: ATORVASTATIN CALCIUM 40 MG TABLET PO SCH (08:17)
[2022-04-01] MEDS: FLUoxetine HCL 20 MG CAPSULE PO SCH (08:18)
[2022-04-01 10:41] VITALS: BP 130/88
[2022-04-01 10:55] LABS: COVID AG,FIA SOURCE NASAL SWAB
[2022-04-01] MEDS: INSULIN LISPRO 100 UNITS/ML SQ PRN ×2 (11:53→21:05)
[2022-04-01 12:01] LABS: GLUCOMETER DEV NAME(LOC) 3E.I 2; GLUCOSE,POINT OF CARE 139 MG/DL (70-110)
[2022-04-01 16:01] VITALS: BP 142/92
[2022-04-01 16:56] LABS: GLUCOMETER DEV NAME(LOC) 3E.I 2; GLUCOSE,POINT OF CARE 123 MG/DL (70-110)
[2022-04-01] MEDS: OLANZapine 10 MG TABLET PO SCH (20:31)
[2022-04-01 21:16] LABS: GLUCOMETER DEV NAME(LOC) 3E.I 2; GLUCOSE,POINT OF CARE 126 MG/DL (70-110)
[2022-04-01] MEDS: ZOLPIDEM TARTRATE 10 MG TABLET PO PRN (22:32)
[2022-04-02] MEDS: LORazepam 1 MG TABLET PO PRN (00:02)
[2022-04-02 06:11] LABS: GLUCOMETER DEV NAME(LOC) 3E.I 2; GLUCOSE,POINT OF CARE 88 MG/DL (70-110)
[2022-04-02] MEDS: INSULIN LISPRO 100 UNITS/ML SQ PRN (06:46)
[2022-04-02] MEDS: MetFORMIN HCL 500 MG TABLET PO SCH (06:56)
[2022-04-02 08:00] VITALS: BP 132/86
[2022-04-02] MEDS: HYDROCHLOROTHIAZIDE 25 MG TABLET PO SCH (08:25)
[2022-04-02] MEDS: FLUoxetine HCL 20 MG CAPSULE PO SCH (08:25)
[2022-04-02] MEDS: ATORVASTATIN CALCIUM 40 MG TABLET PO SCH (08:25)
[2022-04-02] MEDS ORDERED: ATOR40TA71 PO (08:32)
[2022-04-02] MEDS ORDERED: METF-1211 PO (08:32)
[2022-04-02] MEDS ORDERED: HYDR25TA PO (08:32)
[2022-04-02] MEDS ORDERED: FLUO20CA36 PO (08:32)
[2022-04-02] MEDS ORDERED: OLAN10 PO (08:32)
[2022-04-02 11:51] LABS: GLUCOMETER DEV NAME(LOC) 3E.I 2; GLUCOSE,POINT OF CARE 119 MG/DL (70-110)
== END 2022-04-02 13:10 | disposition home or self-care (01) | DRG 750 ==
LOC: EMS 19:05 → 3EI 03-27 02:00
PROVIDERS: ADMIT Psychiatry & Neurology Psychiatry; ATTEND Psychiatry & Neurology Psychiatry
DX: F25.1 Schizoaffective disorder, depressive type (principal); E11.9 Type 2 diabetes mellitus without complications; R45.851 Suicidal ideations; I25.10 Atherosclerotic heart disease of native coronary artery without angina pectoris; Z20.822 Contact with and (suspected) exposure to COVID-19; F79 Unspecified intellectual disabilities; F43.10 Post-traumatic stress disorder, unspecified; E87.6 Hypokalemia; I10 Essential (primary) hypertension; K59.00 Constipation, unspecified; G47.00 Insomnia, unspecified; Z91.51 Personal history of suicidal behavior; Z79.899 Other long term (current) drug therapy; Z88.8 Allergy status to other drugs, medicaments and biological substances; Z65.3 Problems related to other legal circumstances; E78.5 Hyperlipidemia, unspecified
CPT/HCPCS: 80048; 80053; 80307; 81001; 82962; 83036; 85025; 87081; 99285; G0480